=== PATIENT | female | born 1945 | race Caucasian/White ===

== ENCOUNTER 2024-10-09 18:30 | Emergency (ER) | payer OTHER ==
[~2024-10-09] VITALS: Ht 162.6 cm; Wt 72.6 kg
[2024-10-09] MEDS ORDERED: DIOVAN320 MG (18:40)
[2024-10-09] MEDS ORDERED: JENTADUETO 2.51 EAC2 (18:40)
[2024-10-09] MEDS ORDERED: TOPROL XL50 M1 (18:40)
[2024-10-09] MEDS ORDERED: GLIPIZIDE XL10 MG (18:41)
[2024-10-09] MEDS ORDERED: ATIVAN2 M1 (18:41)
[2024-10-09] MEDS ORDERED: PRAVASTATIN SOD40 MG (18:41)
[2024-10-09] MEDS ORDERED: CHOLESTYRAMINE/ASPARTAME LIGHT 4 G/PKT PACKET PO ONE (19:15)
[2024-10-09] MEDS ORDERED: METRONIDAZOLE/SODIUM CHLORIDE 500 MG/100 ML PIGGYBACK IV ONE (19:15)
[2024-10-09] MEDS ORDERED: ONDANSETRON HCL 2 MG/ML VIAL IV ONE (19:15)
[2024-10-09] MEDS ORDERED: 0.9 % SODIUM CHLORIDE 1,000 ML IV ONE (19:15)
[2024-10-09] MEDS ORDERED: CIPROFLOXACIN IN 5 % DEXTROSE 400 MG/200 ML PIGGYBAG IV ONE (19:15)
[2024-10-09] MEDS ORDERED: FAMOtidine 10 MG/ML (4ML VIAL) IV ONE (19:15)
[2024-10-09 19:47] LABS: HEMATOCRIT 33.7 % (36.0-45.00); HEMOGLOBIN 11.8 g/dL (12.0-15.00); MEAN CELL VOLUME 86.6 fL (80.00-100.00); MEAN CORPUSCULAR HEMOGLOBIN 30.3 pg (27.00-32.0); PLATELET COUNT 205 K/uL (150-450); RED BLOOD COUNT 3.89 M/uL (4.00-6.00); RED CELL DISTRIBUTION WIDTH 16.1 % (11.5-14.5)
[2024-10-09 20:02] LABS: INR 1.09; PARTIAL THROMBOPLASTIN TIME 29.2 SECONDS (22.0-34.0); PROTHROMBIN TIME 11.8 SECONDS (9.0-11.5)
[2024-10-09 20:06] LABS: ALBUMIN 3.5 gm/dL (3.4-5.0); BILIRUBIN TOTAL 0.27 mg/dL (0.3-1.2); CALCIUM 8.3 mg/dL (8.5-10.1); CREATININE SERUM 1.19 mg/dL (0.55-1.02); GFR 43.87; GLOBULINA 5.5 G/DL (2.4-3.5); POTASSIUM 4.42 mEq/L (3.5-5.1)
[2024-10-09 20:46] LABS: PH,URINE 5.5 (5.0-8.0); URINE APPEARANCE Clear; URINE BILIRRUBIN Negative (NEGATIVE); URINE COLOR Yellow; URINE GLUCOSE Negative (NEGATIVE); URINE KETONE Negative (NEGATIVE); URINE LEUKOCYTE Trace; URINE NITRATE Negative; URINE PROTEIN Negative (NEGATIVE); URINE UROBILINOGEN 0.2 E.U./dl
[2024-10-09 20:50] LABS: URINE BACTERIA 1696.2 uL (0.0-1933); URINE EPITHELIAL CELLS 38.7 uL (0.0-38.8); URINE WBC 13.2 uL (0.0-23.2)
[2024-10-09 20:56] LABS: URINE BLOOD Trace; URINE CAST 0.58 uL (0.0-1.40)
[2024-10-09] MEDS ORDERED: PEPCID AC20 MG PO (23:31)
[2024-10-09] MEDS ORDERED: CIPRO500 MG PO (23:31)
[2024-10-09] MEDS ORDERED: METRONIDAZOLE500 MG PO (23:31)
== END 2024-10-10 00:11 | disposition home or self-care (01) ==
LOC: ER 18:30
PROVIDERS: General Practice
DX: K57.30 Diverticulosis of large intestine without perforation or abscess without bleeding (principal); Z88.6 Allergy status to analgesic agent; Z88.0 Allergy status to penicillin; Z85.528 Personal history of other malignant neoplasm of kidney; E11.9 Type 2 diabetes mellitus without complications; Z79.84 Long term (current) use of oral hypoglycemic drugs; I10 Essential (primary) hypertension; E03.9 Hypothyroidism, unspecified
CPT/HCPCS: 36415; 74176; 96365; 96366; 99284; J0744; J2405; J3490

== ENCOUNTER 2025-04-25 20:59 | Emergency (ER) | payer OTHER ==
[~2025-04-25] VITALS: Ht 157.5 cm; Wt 95.3 kg
[~2025-04-25 20:59] MED LIST: ATIVAN2 M1; CIPRO500 MG PO; DIOVAN320 MG; GLIPIZIDE XL10 MG; JENTADUETO 2.51 EAC2; METRONIDAZOLE500 MG PO; PEPCID AC20 MG PO; PRAVASTATIN SOD40 MG; TOPROL XL50 M1
[2025-04-25] MEDS ORDERED: SYNTHROID200 MCG PO (23:19)
[2025-04-25] MEDS ORDERED: ACETAMINOPHEN 500 MG GEL..CAP PO STA (23:33)
[2025-04-25] MEDS ORDERED: ACETAMINOPHEN 500 MG GEL..CAP PO ONE (23:47)
== END 2025-04-26 01:29 | disposition home or self-care (01) ==
LOC: ER 20:59
DX: S40.011A Contusion of right shoulder, initial encounter (principal); W18.39XA Other fall on same level, initial encounter; Y93.89 Activity, other specified; Y92.89 Other specified places as the place of occurrence of the external cause; Z88.0 Allergy status to penicillin; Z88.6 Allergy status to analgesic agent